=== PATIENT | female | born 1960 | race Caucasian/White ===

== ENCOUNTER → 2018-07-21 | Outpatient (CLI) | payer OTHER ==
[~2018-07-21] MED LIST: ANAS1 PO; BP MED; BUPR100 PO; FLUO10 PO; LEVSOD25 PO; MAXALT; OXYACE5T PO; [UNRECOGNIZED DRUG - OTHER]
[2018-07-25 15:07] LABS: HPV 16 Negative (Negative); HPV 18 Negative (Negative); HPV OTHER HR TYPES Negative (Negative)
== END ==
LOC: LAB 18:13 → LAB SHORT 18:13
PROVIDERS: Obstetrics & Gynecology Gynecology
DX: Z12.72 Encounter for screening for malignant neoplasm of vagina (principal)
CPT/HCPCS: 87624; G0123

== ENCOUNTER 2024-08-15 07:55 | Day surgery (SDC) | payer BC ==
[~2024-08-15] VITALS: Ht 167.6 cm; Wt 85.8 kg
[2024-08-15] MEDS ORDERED: Lactated Ringer's 1,000 ML IV ONE ×2 (08:22→09:00)
[2024-08-15] MEDS ORDERED: propofoL 50 ML IV ONE ×2 (08:22→10:32)
[2024-08-15] MEDS ORDERED: Lidocaine HCl 2% Jelly 120MG/6ML SYR (20MG PER ML) ONE (08:40)
[2024-08-15] MEDS ORDERED: LISI20 (08:43)
[2024-08-15] MEDS ORDERED: Seroquel Xr50 MG (08:44)
[2024-08-15] MEDS ORDERED: BUTALBITAL-ASA1 EACH (08:46)
[2024-08-15] MEDS ORDERED: Ativan1 MG (08:46)
[2024-08-15 11:12] VITALS: BP 163/85
== END 2024-08-15 11:03 | disposition home or self-care (01) ==
LOC: ORSCSDS 07:55
PROVIDERS: Internal Medicine Gastroenterology
PROC: 0DBK8ZX Excision of Ascending Colon, Via Natural or Artificial Opening Endoscopic, Diagnostic (ICD-10-PCS; principal; 2024-08-15 09:30)
PROC: 0DBH8ZX Excision of Cecum, Via Natural or Artificial Opening Endoscopic, Diagnostic (ICD-10-PCS; principal; 2024-08-15 09:30)
DX: Z12.11 Encounter for screening for malignant neoplasm of colon (principal); D12.2 Benign neoplasm of ascending colon; D12.0 Benign neoplasm of cecum; K57.30 Diverticulosis of large intestine without perforation or abscess without bleeding; K64.4 Residual hemorrhoidal skin tags; Z79.899 Other long term (current) drug therapy
CPT/HCPCS: 88305; A9270; J2704; J7120